=== PATIENT | female | born 1965 | race Caucasian/White ===

== ENCOUNTER 2017-10-14 11:35 | Emergency (ER) | payer OTHER ==
[~2017-10-14] VITALS: Ht 157.5 cm; Wt 73.9 kg
[2017-10-14] MEDS ORDERED: METF500T7 PO (11:54)
[2017-10-14] MEDS ORDERED: PYRI50TA9 PO (11:54)
--- NOTE | 2017-10-14 11:54 | NUR ---
MEDICATION INFORMATION FROM PATIENT BEST SHE CAN REMEMBER AT THIS TIME.
--- NOTE | 2017-10-14 11:58 | NUR ---
Pt c/o left side kidney pain, -03/08, took tramadol earlier. Pain started around 0300 today. Pt denies CP, SOB, dizziness, n/v, no other complaints, no distress noted.
[2017-10-14 12:14] LABS: *BILIRUBIN,URIN NEGATIVE (NEGATIVE); *BLOOD, URINE NEGATIVE (NEGATIVE); *CLARITY,URINE CLEAR (CLEAR); *COLOR,URINE YELLOW (YELLOW); *KETONES,URINE NEGATIVE (NEGATIVE); *PROTEIN,URINE NEGATIVE (NEGATIVE); *UROBILINOGEN,URINE 0.2 E.U./dl (NORMAL); LEUKOCYTE ESTERASE ,URINE NEGATIVE (NEGATIVE); NITRITE, URINE NEGATIVE (NEGATIVE); PH,URINE 5.5 (5.0-8.0); UGLUCOSE NEGATIVE (NEGATIVE)
[2017-10-14 12:32] LABS: BACTERIA,URINE FEW /HPF (NONE SEEN); RBC,URINE 0-3 /HPF (0-3); SQUAMOUS EPITHELIAL CELL,UR MODERATE /HPF (NONE SEEN); WBC,URINE 0-3 /HPF (0-3)
[2017-10-14] MEDS ORDERED: SULFAMETH/TRIMETH 800/160 MG TABLET PO ONE (12:45)
[2017-10-14] MEDS ORDERED: SULFAMETH/TRIMETH 800/160 MG TABLET ONE (12:57)
[2017-10-14] MEDS ORDERED: TRAMADOL HCL 50 MG TABLET PO ONE (13:00)
[2017-10-14] MEDS ORDERED: TRAMADOL HCL 50 MG TABLET ONE (13:06)
--- NOTE | 2017-10-14 13:11 | NUR ---
Gave pt RX and d/c instructions, verbalized understanding.
== END 2017-10-14 13:11 | disposition home or self-care (01) ==
LOC: ER 11:35
DX: N39.0 Urinary tract infection, site not specified (principal); E78.5 Hyperlipidemia, unspecified; E11.9 Type 2 diabetes mellitus without complications; Z79.84 Long term (current) use of oral hypoglycemic drugs; Z79.899 Other long term (current) drug therapy
CPT/HCPCS: 87086; A4663

== ENCOUNTER 2019-01-03 20:07 | Emergency (ER) | payer OTHER ==
[~2019-01-03] VITALS: Ht 157.5 cm; Wt 73.0 kg
[~2019-01-03 20:07] MED LIST: METF500T7 PO; PYRI-6 PO
--- NOTE | 2019-01-03 21:03 | NUR ---
PATIENT WAS MSE BY DR GARCIA IN ROOM 03A. PATIENT A & O X3.
[2019-01-03 21:29] LABS: BASOPHILS # (AUTO) 0.1 K/uL (0.0-8.0); BASOPHILS % (AUTO) 0.8 % (0.0-2.0); EOSINOPHILS # (AUTO) 0.3 K/uL (0.0-0.7); EOSINOPHILS % (AUTO) 2.6 % (0.0-7.0); HEMATOCRIT 45.1 % (31.2-41.9); HEMOGLOBIN 15.2 g/dL (10.9-14.3); LYMPHOCYTES # (AUTO) 2.5 K/uL (20.0-40.0); LYMPHOCYTES % (AUTO) 25.6 % (20.5-51.5); MEAN CORPUSCULAR HGB CONC 34 g/dL (32.3-35.6); MEAN CORPUSCULAR VOLUME 92.2 fL (75.5-95.3); MONOCYTES # (AUTO) 0.5 K/uL (2.0-10.0); MONOCYTES % (AUTO) 5.2 % (0.0-11.0); NEUTROPHILS # (AUTO) 6.4 K/uL (1.8-8.9); NEUTROPHILS % (AUTO) 65.8 % (38.5-71.5); PLATELET COUNT (AUTO) 288 K/uL (179-408); RED BLOOD CELL COUNT(AUTO) 4.89 MIL/uL (3.63-4.92); WHITE BLOOD COUNT (AUTO) 9.8 K/uL (3.8-11.8)
[2019-01-03 21:37] LABS: CREATININE 0.7 mg/dL (0.6-1.3); POTASSIUM 4.2 mmol/L (3.5-5.1)
[2019-01-03] MEDS ORDERED: ONDANSETRON IV *ER 4 MG/2 ML VIAL IV ONE (22:15)
[2019-01-03] MEDS ORDERED: ONDANSETRON 4 MG/2 ML VIAL ONE (22:15)
[2019-01-03] MEDS ORDERED: KETOROLAC TROMETHAMINE 30 MG INJ IVP ONE (22:45)
[2019-01-03] MEDS ORDERED: KETOROLAC TROMETHAMINE 30 MG INJ ONE (22:47)
--- NOTE | 2019-01-03 23:15 | NUR ---
DR GARCIA AT BEDSIDE MADE PATIENT AWARE OF TEST RESULTS.
--- NOTE | 2019-01-03 23:20 | NUR ---
PATIENT WITH STEADY GAIT. NO C/O ANY N/V.A & O X3.
[2019-01-03 23:21] VITALS: BP 101/78
--- NOTE | 2019-01-03 23:21 | NUR ---
Patient discharged to home in stable conditon. Written and verbal after care instructions given. Patient and family verbalizes understanding of instructions.
== END 2019-01-03 23:23 | disposition home or self-care (01) ==
LOC: ER 20:09
DX: R51 Headache (principal); M54.2 Cervicalgia; M25.561 Pain in right knee; M25.531 Pain in right wrist; M79.671 Pain in right foot; M25.571 Pain in right ankle and joints of right foot; R42 Dizziness and giddiness; E11.9 Type 2 diabetes mellitus without complications; F17.210 Nicotine dependence, cigarettes, uncomplicated; Z79.899 Other long term (current) drug therapy; W18.30XA Fall on same level, unspecified, initial encounter; Y93.89 Activity, other specified; Y92.89 Other specified places as the place of occurrence of the external cause; Y99.8 Other external cause status
CPT/HCPCS: 36415; 70450; 72125; 73110; 73562; 73610; 73630; 80048; 82962; 84484; 85025; 93005; 96374; 96375; 99284; J1885; J2405; 70030-TC; A4663

== ENCOUNTER 2019-05-21 20:02 | Emergency (ER) | payer OTHER ==
[~2019-05-21] VITALS: Ht 154.9 cm; Wt 74.4 kg
[2019-05-21] MEDS ORDERED: HYDROMORPHONE 1 MG/1 ML DISP.SYRIN ONE (21:23)
[2019-05-21] MEDS ORDERED: LIDOCAINE HCL 1% 20 ML VIAL ONE (21:23)
[2019-05-21] MEDS ORDERED: ONDANSETRON ODT 4 MG TAB.RAPDIS ONE (21:23)
[2019-05-21] MEDS ORDERED: CEFTRIAXONE 1 G VIAL ONE (21:24)
[2019-05-21] MEDS: HYDROMORPHONE 1 MG/1 ML DISP.SYRIN IM ONE (21:28)
[2019-05-21] MEDS: ONDANSETRON ODT 4 MG TAB.RAPDIS SL ONE (21:29)
[2019-05-21] MEDS: LIDOCAINE 1%-EPI 1:100,000 20 ML VIAL IJ ONE (21:32)
[2019-05-21] MEDS: SODIUM BICARBONATE 4.2 % (NEUT) 5 ML VIAL TP ONE (21:32)
[2019-05-21] MEDS: CEFTRIAXONE 1 G VIAL IM ONE (21:40)
--- NOTE | 2019-05-21 22:20 | NUR ---
at bedside for I&D.
[2019-05-21] MEDS ORDERED: SULFAMETH/TRIMETH 800/160 MG TABLET ONE (22:39)
[2019-05-21] MEDS: SULFAMETH/TRIMETH 800/160 MG TABLET PO ONE (22:40)
--- NOTE | 2019-05-21 22:44 | NUR ---
Patient discharged to home in stable conditon. Written and verbal after care instructions given. Patient verbalizes understanding of instructions. Pt walked out of ER in stable gait with daughter who will drive pt home. Pt appears in no apparent distress. Vital signs stable. Respirations even + unlabored. Pt verbalizes understanding of d/c instructions.
[2019-05-21 22:50] VITALS: BP 138/77
== END 2019-05-21 22:50 | disposition home or self-care (01) ==
LOC: ER 20:03
DX: L03.116 Cellulitis of left lower limb (principal); L02.416 Cutaneous abscess of left lower limb; Z71.6 Tobacco abuse counseling; E11.9 Type 2 diabetes mellitus without complications; F32.9 Major depressive disorder, single episode, unspecified; F17.210 Nicotine dependence, cigarettes, uncomplicated; Z79.899 Other long term (current) drug therapy
CPT/HCPCS: 10060; 96372 ×2; 99284; 99406; J0696; J1170; J3490 ×3; A4217; A4663; Q0162

== ENCOUNTER 2019-05-23 00:06 | Emergency (ER) | payer OTHER ==
[~2019-05-23] VITALS: Ht 162.6 cm; Wt 72.6 kg
[2019-05-23] MEDS ORDERED: LIDOCAINE 1%-EPI 1:100,000 20 ML VIAL TP ONE (01:00)
--- NOTE | 2019-05-23 01:04 | NUR ---
Dr. zhu at bedside assessing wound and providing treatment with Christy chapa RN at bedside.
--- NOTE | 2019-05-23 01:26 | NUR ---
Patient discharged to home in stable conditon. Written and verbal after care instructions given. Patient verbalizes understanding of instructions. Patient ambulatory with steady gait. exit care paockage and personal belongings taken home with the patient at discharge. Patient denies any pain/discomfort at this time.
[2019-05-23 01:27] VITALS: BP 121/84
== END 2019-05-23 01:28 | disposition home or self-care (01) ==
LOC: ER 00:08
DX: Z48.01 Encounter for change or removal of surgical wound dressing (principal); E11.9 Type 2 diabetes mellitus without complications; F32.9 Major depressive disorder, single episode, unspecified; F17.210 Nicotine dependence, cigarettes, uncomplicated; Z79.899 Other long term (current) drug therapy
CPT/HCPCS: 99282; 99406; J3490; A4663

== ENCOUNTER 2019-05-25 11:15 | Emergency (ER) | payer OTHER ==
[~2019-05-25] VITALS: Ht 165.1 cm; Wt 77.1 kg
[2019-05-25] MEDS ORDERED: SULF1TAB48 PO (11:32)
[2019-05-25] MEDS ORDERED: FLUO-119 PO (11:32)
--- NOTE | 2019-05-25 11:42 | NUR ---
Dr Thomson at the bedside for MSE. removed packing for abscess wound.
[2019-05-25 11:49] VITALS: BP 105/79
--- NOTE | 2019-05-25 11:50 | NUR ---
Patient discharged to home in stable conditon. Written and verbal after care instructions given. Patient verbalizes understanding of instructions.
== END 2019-05-25 11:50 | disposition home or self-care (01) ==
LOC: ER 11:15
DX: Z48.01 Encounter for change or removal of surgical wound dressing (principal); E11.9 Type 2 diabetes mellitus without complications; F32.9 Major depressive disorder, single episode, unspecified; F17.210 Nicotine dependence, cigarettes, uncomplicated; Z79.84 Long term (current) use of oral hypoglycemic drugs; Z79.899 Other long term (current) drug therapy
CPT/HCPCS: A4663